=== PATIENT | female | born 1945 | race Caucasian/White ===

== ENCOUNTER 2018-01-17 22:08 | Inpatient (IN) | payer OTHER ==
[2018-01-17 23:14] LABS: Urine Blood NEGATIVE (NEG); Urine Glucose NEGATIVE (NEG); Urine Protein NEGATIVE (NEG); Urine Specific Gravity 1.025 (1.005-1.030); Urine pH 5.5 (5.0-7.0)
[2018-01-17] MEDS ORDERED: ONDANSETRON 4 MG/2 ML VIAL ONE (23:33)
[2018-01-17] MEDS ORDERED: MORPHINE 4 MG/ML SYR ONE (23:33)
[2018-01-17 23:36] LABS: Albumin 3.4 g/dL (3.4-5.0); Bilirubin Direct 0.1 mg/dL (0-0.2); Bilirubin Total 0.6 mg/dL (0.2-1.0); Potassium 3.5 mmol/L (3.5-5.1)
[2018-01-17 23:44] LABS: Urine Bacteria <20 /HPF (<20); Urine Culture Reflex Order NOT NEEDED; Urine RBC NONE SEEN /HPF (NONE SEEN)
[2018-01-17 23:45] LABS: Absolute Lymphocytes (CBC) 1.9 K/uL (0.7-4.9); Absolute Monocytes 1.6 K/uL (0.1-1.3); Absolute Neutrophil 8.9 K/uL (1.8-8.0); Basophils % 0.4 % (0-1.3); Eosinophils % 1.7 % (0-4.4); Hematocrit 40.4 % (36.0-45.0); Lymphocytes % 14.8 % (15.3-44.8); MCH 31.3 pg (27.0-35.0); MCV 91.1 fL (80-100); MPV 9.4 fL (7.6-11.3); Monocytes % 12.8 % (3.3-12.3); RBC Red Blood Cell Count 4.44 M/uL (3.86-4.86)
--- NOTE | 2018-01-18 01:56 | ER ---
Nurse's Notes [facility] Name: Barbara Deluca Age: 72 yrs Sex: Female : 1945 Arrival Date: 01/17/2018 Time: 22:11 Bed 23 Private MD: Diagnosis: Diverticulitis of large intestine without perforation or abscess without bleeding Presentation: 01/17 22:19 Presenting complaint: Patient states: that yesterday she started to have pain in her rectum area and then today the pain has gotten worse. Also now has pain to lower abd and lower back. Hx of kidney stones. Transition of care: patient was not received from another setting of care. Onset of symptoms was January 16, 2018. Risk Assessment: Do you want to hurt yourself or someone else? Patient reports no desire to harm self or others. Initial Sepsis Screen: Does the patient meet any 2 criteria? HR > 90 bpm. Yes Does the patient have a suspected source of infection? No. Patient's initial sepsis screen is negative. Care prior to arrival: Medication(s) given: Aleve last dose yesterday. 22:19 Method Of Arrival: Ambulatory 22:19 Acuity: ROSSY 3 fc Historical: - Allergies: 22:23 Codeine; fc - Home Meds: 22:23 metformin 500 mg Oral tab 1 tab 2 times per day [Active]; omeprazole 40 mg Oral cpDR 1 fc cap once daily [Active]; - PMHx: 22:23 Diabetes - NIDDM; GERD; fc - PSHx: 22:23 Cholecystectomy; Hysterectomy; ; Carpal Tunnel Repair; Heel spurs; fc - Immunization history:: Last tetanus immunization: unknown. - Social history:: Smoking status: Patient/guardian denies using tobacco. - Ebola Screening: : Patient negative for fever greater than or equal to 101.5 degrees Fahrenheit, and additional compatible Ebola Virus Disease symptoms Patient denies exposure to infectious person Patient denies travel to an Ebola-affected area in the 21 days before illness onset. Screenin:24 Abuse screen: Denies threats or abuse. Nutritional screening: No deficits noted. Tuberculosis screening: No symptoms or risk factors identified. Fall Risk None identified. Assessment: 22:30 General: Appears in no apparent distress. uncomfortable, well groomed, well developed, kr2 well nourished, Behavior is calm, cooperative, appropriate for age. Pain: Complains of pain in right lower quadrant, lower back Pain radiates to rectum and vagina Pain currently is 6 out of 10 on a pain scale. Quality of pain is described as sharp, shooting, Is continuous, Alleviated by nothing. Neuro: Level of Consciousness is awake, alert, obeys commands, Oriented to person, place, time, situation. Cardiovascular: Capillary refill < 3 seconds in bilateral fingers Patient's skin is warm and dry. Respiratory: Airway is patent Respiratory effort is even, unlabored, Respiratory pattern is regular, symmetrical. GI: Abdomen is round non-distended, Bowel sounds present X 4 quads. Abd is soft X 4 quads Abdomen is tender to palpation in umbilical area, right lower quadrant and left lower quadrant Reports nausea. : Urine is clear. EENT: Oral mucosa is moist. Derm: Skin is intact, with poor turgor Skin is pink, warm \T\ dry. Musculoskeletal: Circulation, motion, and sensation intact. 23:30 Reassessment: Patient appears in no apparent distress at this time. Patient and/or kr2 family updated on plan of care and expected duration. Pain level reassessed. Patient is alert, oriented x 3, equal unlabored respirations, skin warm/dry/pink. 01/18 00:34 Reassessment: Patient appears in no apparent distress at this time. Patient and/or kr2 family updated on plan of care and expected duration. Pain level reassessed. Patient is alert, oriented x 3, equal unlabored respirations, skin warm/dry/pink. Pain decreased with morphine. 00:42 Reassessment: Patient appears in no apparent distress at this time. Patient and/or rv family updated on plan of care and expected duration. Pain level reassessed. Patient is alert, oriented x 3, equal unlabored respirations, skin warm/dry/pink. AWAITING SCAN RESULT. Vital Signs: 01/17 22:23 BP 149 / 83; Pulse 109; Resp 20; Temp 98.6(O); Pulse Ox 98% on R/A; Weight 77.11 kg fc (R); Height 5 ft. 3 in. (160.02 cm) (R); Pain 10/10; 01/18 00:34 BP 137 / 75; Pulse 99; Resp 17; Pulse Ox 96% on R/A; kr2 00:42 BP 137 / 75; Pulse 102; Pulse Ox 91% on R/A; rv 02:45 BP 120 / 69; Pulse 102; Pulse Ox 93% on R/A; rv 01/17 22:23 Body Mass Index 30.11 (77.11 kg, 160.02 cm) ED Course: 01/17 22:11 Patient arrived in ED. al2 22:21 Triage completed. fc 22:23 Arm band placed on Patient placed in an exam room, on a stretcher. fc 22:24 Patient has correct armband on for positive identification. Placed in gown. Bed in low fc position. Call light in reach. 22:28 Romulo Figueroa PA is PHCP. jm 22:28 Benny Grady MD is Attending Physician. [facility] 22:28 Tanya Hansen, NAOMY is Primary Nurse. kr2 22:55 Oral contrast given. 23:00 Initial lab(s) drawn, by me, sent to lab. Missed attempt(s): 22 gauge in left forearm. kr2 Bleeding controlled, band aid applied, catheter tip intact. 01/18 00:23 CT Abd/Pelvis - W/Contrast In Process Unspecified. EDMS 00:56 CT completed. Patient tolerated procedure well. Patient moved to CT via stretcher. Patient moved back from CT. 01:55 Jeana Bahena MD is Hospitalizing Provider. [facility] 02:44 No provider procedures requiring assistance completed. Patient admitted, IV remains in rv place. intact. Administered Medications: 01/17 23:22 Drug: Zofran 4 mg Route: IVP; Site: right antecubital; kr2 01/18 02:43 Follow up: Response: No adverse reaction rv 01/17 23:35 Drug: morphine 2 mg Route: IVP; Site: right antecubital; kr2 01/18 02:43 Follow up: Response: No adverse reaction rv Outcome: 01:56 Decision to Hospitalize by Provider. jmm 02:44 Admitted to Med/surg accompanied by nurse, via wheelchair, room 201, with chart, Report rv called to BHAVIK 02:44 Condition: stable 02:45 Patient left the ED. rv Signatures: Dispatcher [employer] EDMS Romulo Figueroa PA PA jmm Hagler, Ervin Beryl Orellana RN RN Michell Kauffman Karey, RN RN kr2 Roseanna, Sarah figueroa2 Mat Buck, RN RN rv
--- NOTE | 2018-01-18 01:56 | EDPHYS ---
Physician Documentation [facility] Name: Barbara Deluca Age: 72 yrs Sex: Female : 1945 Arrival Date: 01/17/2018 Time: 22:11 Bed 23 Private MD: ED Physician Benny Grady HPI: 01/17 22:53 This 72 yrs old Female presents to ER via Ambulatory with complaints of Low jmm Back Pain, Abdominal Pain. 22:53 The patient presents with abdominal pain in the lower abdomen. Onset: The jmm symptoms/episode began/occurred gradually, 1 day(s) ago. The symptoms radiate to rectum. Associated signs and symptoms: Pertinent positives: chills. The symptoms are described as achy. This is a 72 year old female with a history of DM, GERD that presents to the ED with lower abdominal pain, low back pain radiating to the rectum. Patient denies vomiting or diarrhea. Patient also complains of chills. . Historical: - Allergies: 22:23 Codeine; fc - Home Meds: 22:23 metformin 500 mg Oral tab 1 tab 2 times per day [Active]; omeprazole 40 mg Oral cpDR 1 fc cap once daily [Active]; - PMHx: 22:23 Diabetes - NIDDM; GERD; fc - PSHx: 22:23 Cholecystectomy; Hysterectomy; ; Carpal Tunnel Repair; Heel spurs; fc - Immunization history:: Last tetanus immunization: unknown. - Social history:: Smoking status: Patient/guardian denies using tobacco. - Ebola Screening: : Patient negative for fever greater than or equal to 101.5 degrees Fahrenheit, and additional compatible Ebola Virus Disease symptoms Patient denies exposure to infectious person Patient denies travel to an Ebola-affected area in the 21 days before illness onset. ROS: 22:53 Cardiovascular: Negative for chest pain, palpitations, and edema, Respiratory: Negative jmm for shortness of breath, cough, wheezing, and pleuritic chest pain. 22:53 Constitutional: Positive for chills. 22:53 Abdomen/GI: Positive for abdominal pain. 22:53 Back: Positive for pain at rest, radiated pain. 22:53 All other systems are negative. Exam: 22:53 Head/Face: atraumatic. Chest/axilla: Normal chest wall appearance and motion. jmm Cardiovascular: Regular rate and rhythm. No edema appreciated Respiratory: Normal respirations, no respiratory distress appreciated 22:53 Constitutional: The patient appears in no acute distress, alert, awake. 22:53 Abdomen/GI: Inspection: abdomen appears normal, Bowel sounds: normal, Palpation: soft, mild abdominal tenderness, in the right lower quadrant and left lower quadrant. 22:53 Back: ROM is normal. 22:53 Skin: Appearance: Color: normal in color. 22:53 Neuro: Orientation: is normal, Mentation: is normal, Memory: is normal. 22:53 Psych: Behavior/mood is pleasant, cooperative. Vital Signs: 22:23 BP 149 / 83; Pulse 109; Resp 20; Temp 98.6(O); Pulse Ox 98% on R/A; Weight 77.11 kg fc (R); Height 5 ft. 3 in. (160.02 cm) (R); Pain 10/10; 01/18 00:34 BP 137 / 75; Pulse 99; Resp 17; Pulse Ox 96% on R/A; kr2 00:42 BP 137 / 75; Pulse 102; Pulse Ox 91% on R/A; rv 02:45 BP 120 / 69; Pulse 102; Pulse Ox 93% on R/A; rv 01/17 22:23 Body Mass Index 30.11 (77.11 kg, 160.02 cm) fc MDM: 01/17 22:34 Patient medically screened. [facility] 22:55 Data reviewed: vital signs, nurses notes. Counseling: I had a detailed discussion with [facility] the patient and/or guardian regarding:. 01/18 01:55 ED course: I discussed the patient with Dr. Bhaena whom will see the patient in the [facility] ED. Accepted admission. . 01/17 22:52 Order name: Amylase, Serum; Complete Time: 23:46 [facility] 01/17 22:52 Order name: Basic Metabolic Panel; Complete Time: 23:46 [facility] 01/17 22:52 Order name: CBC with Diff; Complete Time: 23:47 [facility] 01/17 22:52 Order name: Creatinine for Radiology; Complete Time: 00:04 [facility] 01/17 22:52 Order name: Hepatic Function; Complete Time: 23:46 [facility] 01/17 22:52 Order name: Lipase; Complete Time: 23:46 [facility] 01/17 22:52 Order name: Urine Microscopic Only; Complete Time: 23:46 [facility] 01/17 22:52 Order name: IV Saline Lock; Complete Time: 23:06 [facility] 01/17 22:52 Order name: CT Abd/Pelvis - W/Contrast [facility] 01/17 23:09 Order name: Urine Dipstick--Ancillary (enter results); Complete Time: 23:46 [facility] 01/17 22:52 Order name: Labs collected and sent; Complete Time: 23:06 [facility] 01/17 22:52 Order name: Urine Dipstick-Ancillary (obtain specimen); Complete Time: 23:06 [facility] Administered Medications: 01/17 23:22 Drug: Zofran 4 mg Route: IVP; Site: right antecubital; [facility] 01/18 02:43 Follow up: Response: No adverse reaction rv 01/17 23:35 Drug: morphine 2 mg Route: IVP; Site: right antecubital; 2 01/18 02:43 Follow up: Response: No adverse reaction rv Disposition: 06:38 Co-signature as Attending Physician, Benny Grady MD I agree with the assessment and nghia plan of care. Disposition: 01/18/18 01:56 Hospitalization ordered by Jeana Bahena for Observation. Preliminary diagnosis is Diverticulitis of large intestine without perforation or abscess without bleeding. - Bed requested for Telemetry/MedSurg (observation). - Status is Observation. rv - Condition is Stable. - Problem is new. - Symptoms are unchanged. UTI on Admission? No Signatures: Dispatcher [employer] EDVT Rajan Orta rg2 Benny Grady MD MD cha Mickail, Joel, PA PA [facility] Beryl Orellana RN NAOMY Tanya Hansen RN RN kr2 Mat Buck, NAOMY RN rv Corrections: (The following items were deleted from the chart) 02:39 01:56 Hospitalization Ordered by Jeana Bahena MD for Observation. Preliminary rg2 diagnosis is Diverticulitis of large intestine without perforation or abscess without bleeding. Bed requested for Telemetry/MedSurg (observation). Status is Observation. Condition is Stable. Problem is new. Symptoms are unchanged. UTI on Admission? No. [facility] 02:45 02:39 01/18/2018 01:56 Hospitalization Ordered by Jeana Bahena MD for Observation. rv Preliminary diagnosis is Diverticulitis of large intestine without perforation or abscess without bleeding. Bed requested for Telemetry/MedSurg (observation). Status is Observation. Condition is Stable. Problem is new. Symptoms are unchanged. UTI on Admission? No. rg2
[2018-01-18] MEDS ORDERED: CIPROFLOXACIN 400mg IV 400 MG/200 ML BAG IV ONE (02:00)
[2018-01-18] MEDS ORDERED: METRONIDAZOLE 500mg IVPB 500 MG/100 ML BAG IV ONE (02:00)
--- NOTE | 2018-01-18 02:44 | P.HP ---
Certification for Inpatient Patient admitted to: Inpatient With expected LOS: >2 Midnights Practitioner: I am a practitioner with admitting privileges, knowledge of patient current condition, hospital course, and medical plan of care. Services: Services provided to patient in accordance with Admission requirements found in Title 42 Section 412.3 of the Code of Federal Regulations Patient History Date of Service: 01/18/18 Reason for admission: diverticulitis History of Present Illness: Ms Deluca is a 72 years old woman with history of DM II, GERD who start yesterday with severe lower abdominal pain, radiated to rectum area. The pain was constant, 10/10 of intensity, associated with nausea and chills. She denied fever, vomiting or diarrhea. She has never had this kind of pain before. Lab work remarkable for leukocytosis 12.6K, no fever in ER, CT abd/pelvis remarkable for sigmoid diverticulitis without complications. Allergies Penicillins Adverse Reaction (Mild, Verified 01/18/18 02:35) Hives/Rash codeine Adverse Reaction (Verified 01/18/18 02:35) Hives/Rash - Past Medical/Surgical History -: diabetes mellitus -: GERD -: cholecystectomy -: hysterectomy -: - Family History Family History: Reviewed- Non-Contributory - Social History Smoking Status: Never smoker Alcohol use: No CD- Drugs: No Place of Residence: Home Review of Systems 10-point ROS is otherwise unremarkable Physical Examination - Physical Exam General: Alert, In no apparent distress HEENT: Atraumatic, PERRLA, Mucous membr. moist/pink, EOMI, Sclerae nonicteric Neck: Supple, 2+ carotid pulse no bruit, No LAD, Without JVD or thyroid abnormality Respiratory: Clear to auscultation bilaterally, Normal air movement Cardiovascular: Regular rate/rhythm, Normal S1 S2 Gastrointestinal: Normal bowel sounds, Tenderness (lower abdomen.) Musculoskeletal: No tenderness Integumentary: No rashes Neurological: Normal speech, Normal strength at 5/5 x4 extr, Normal tone, Normal affect Lymphatics: No axilla or inguinal lymphadenopathy - Studies Laboratory Data (last 24 hrs) 01/17/18 23:36: WBC 12.6 H, Hgb 13.9, Hct 40.4, Plt Count 135 L 01/17/18 23:00: Creatinine 0.70 01/17/18 23:00: Sodium 144, Potassium 3.5, BUN 19 H, Creatinine 0.70, Glucose 141 H, Total Bilirubin 0.6, AST 17, ALT 29, Alkaline Phosphatase 48, Amylase 42 , Lipase 79 Assessment and Plan - Problems (Diagnosis) (1) Acute diverticulitis Current Visit: Yes Status: Acute (2) Diabetes mellitus Current Visit: Yes Status: Acute Qualifiers: Diabetes mellitus type: type 2 Diabetes mellitus terminal press operator insulin use: without terminal press operator use Diabetes mellitus complication status: with unspecified complications Qualified Code(s): E11.8 - Type 2 diabetes mellitus with unspecified complications (3) GERD (gastroesophageal reflux disease) Current Visit: Yes Status: Acute Qualifiers: Esophagitis presence: esophagitis presence not specified Qualified Code(s) : K21.9 - Gastro-esophageal reflux disease without esophagitis - Plan The patient will be admitted to the hospital due to acute non-complicated sigmoid diverticulitis. Will order empiric treatment with Ciprofloxacin and Flagyl. Will keep her NPO since is still symptomatic for nausea. Will check HgbA1c, order SSI for glycemic control. - Advance Directives Does patient have a Living Will: Yes Does patient have a Durable POA for Healthcare: Yes - Code Status/Comfort Care Code Status Assessed: Yes Code Status: Full Code
[2018-01-18] MEDS ORDERED: GLUCAGON 1 MG/VIAL IM PRN (02:48)
[2018-01-18] MEDS ORDERED: ONDANSETRON 4 MG/2 ML VIAL IV PRN (02:48)
[2018-01-18] MEDS ORDERED: KETOROLAC 30 MG/ML INJ IV PRN (02:48)
[2018-01-18] MEDS ORDERED: D50W 25 GM/50 ML SYRINGE IV PRN (02:48)
[2018-01-18 03:06] VITALS: BMI 30.2
[2018-01-18] MEDS: NA CHLORIDE 0.9% 1,000 ML IV SCH ×2 (03:28→16:25)
[2018-01-18] MEDS: ACETAMINOPHEN 500 MG TAB PO PRN ×4 (04:09→21:33)
[2018-01-18] MEDS: PANTOPRAZOLE 40MG TABLET PO SCH (05:44)
[2018-01-18 05:48] LABS: BUN Blood Urea Nitrogen 15 mg/dL (7-18); Bicarbonate 28 mmol/L (21-32); Glucose Level 140 mg/dL (74-106); Magnesium 2.3 mg/dL (1.8-2.4); Potassium 3.9 mmol/L (3.5-5.1); Sodium Level 141 mmol/L (136-145)
[2018-01-18] MEDS ORDERED: INSULIN -REGULAR HUMAN 50 UNIT/0.5 ML ML SQ SCH (06:00)
--- NOTE | 2018-01-18 07:00 | RAD REPORT ---
EXAM DESCRIPTION: CT - Abdomen Pelvis W Contrast - 01/18/2018 4:40 am CLINICAL HISTORY: Abdominal pain, history of kidney stones, history of cholecystectomy and hysterect analisa. A preliminary written report was provided at the time of the study, and the report was reviewed prio r to final dictation. COMPARISON: None. TECHNIQUE: Biphasic, helical CT imaging of the abdomen and pelvis was performed following 100 ml non -ionic IV contrast. Oral contrast was given. Delayed images also obtained. All CT scans are performed using dose optimization technique as appropriate and may include automated exposure control or mA/KV adjustment according to patient size. FINDINGS: No suspicious findings in the lung bases. Liver shows borderline to mild fatty infiltration. Liver cysts are present. Largest is 3.8 cm. No veronica picious liver parenchymal lesion. Spleen and pancreas show no suspicious findings. Cholecystectomy cl ips are present. Biliary tree size is not outside of normal range. Symmetric renal function is seen with no hydronephrosis or suspicious renal mass. No pyelonephritis o r acute renal parenchymal process seen. A 3.6 centimeter cyst is present upper pole left kidney with a 6.8 cm cyst lower pole left kidney. Punctate nonobstructing calculus noted in a calyx on the right. No perinephric stranding. No adrenal gland abnormality. Urinary bladder is normal. No gastric dilatation or gastric wall thickening. No acute small bowel finding. Moderate stool volume is present filling most of the colon. No evidence for appendicitis. Appendix is not well defined. Sigmoid colon is tortuous and redundant. Mild to moderate diverticulosis is present. An approximately 6-8 centimeter long segment of sigmoid colon in the low pelvis shows wall thickening with edema and stranding in the adjacent fat. A few small adjacent lymph nodes are present. There is a small amount of fluid pooled in the dependent portion of the pelvis. No extraluminal free air. No hernia, mass or bulky lymphadenopathy. Postsurgical changes are noted to the anterior abdominal wa ll. No adrenal abnormality. No suspicious bony findings. IMPRESSION: Acute sigmoid diverticulitis. No abscess, perforation or other surgically complicating f actor. Borderline or mild fatty infiltration of the liver. Liver and renal cysts.
[2018-01-18] MEDS ORDERED: HYDROCODONE/APAP 7.5/325 MG TAB PO PRN (07:27)
[2018-01-18] MEDS ORDERED: TRAMADOL HCL 50 MG TAB PO PRN (07:27)
[2018-01-18] MEDS ORDERED: POTASSIUM 25 MEQ EFFERV TAB PO ONE (07:40)
[2018-01-18] MEDS: INSULIN -REGULAR HUMAN 50 UNIT/0.5 ML ML SQ SCH ×4 (08:07→20:22)
[2018-01-18 08:21] LABS: Absolute Neutrophil 6.2 K/uL (1.8-8.0); Basophils % 0.6 % (0-1.3); Eosinophils % 2.2 % (0-4.4); Hematocrit 39.6 % (36.0-45.0); Lymphocytes % 20.8 % (15.3-44.8); MCH 32.1 pg (27.0-35.0); MCV 90.3 fL (80-100); MPV 9.9 fL (7.6-11.3); Monocytes % 10.5 % (3.3-12.3); RBC Red Blood Cell Count 4.38 M/uL (3.86-4.86)
[2018-01-18] MEDS: METRONIDAZOLE 500mg IVPB 500 MG/100 ML BAG IV SCH ×2 (08:51→16:27)
[2018-01-18] MEDS: ENOXAPARIN 40 MG/0.4 ML SQ SCH (08:52)
--- NOTE | 2018-01-18 10:01 | P.PN ---
Subjective Date of Service: 01/18/18 Primary Care Provider: Tristan Parker NP Chief Complaint: diverticulitis Subjective: Improving (Patient feels slightly better. Pain to the lower quadrant improved. No nausea or vomiting noted this morning.) Physical Examination - Vital Signs Temperature: 97.4 F Blood Pressure: 119/66 Pulse: 72 Respirations: 16 Pulse Ox (%): 95 - Physical Exam General: Alert, In no apparent distress, Oriented x3, Cooperative HEENT: Atraumatic Neck: Supple Respiratory: Clear to auscultation bilaterally, Normal air movement Cardiovascular: Normal pulses, Regular rate/rhythm Gastrointestinal: Normal bowel sounds, Soft and benign, Non-distended, No masses , No rebound, No guarding, Tenderness (Minimal pain to the lower quadrant) Musculoskeletal: No erythema, No tenderness, No warmth Integumentary: No tenderness/swelling, No erythema, No warmth, No cyanosis Neurological: Normal speech, Normal strength at 5/5 x4 extr, Normal tone, Normal affect - Studies Laboratory Data (last 24 hrs) 01/18/18 05:00: Sodium 141, Potassium 3.9, BUN 15, Creatinine 0.60, Glucose 140 H, Magnesium 2.3 01/17/18 23:36: WBC 12.6 H, Hgb 13.9, Hct 40.4, Plt Count 135 L 01/17/18 23:00: Creatinine 0.70 01/17/18 23:00: Sodium 144, Potassium 3.5, BUN 19 H, Creatinine 0.70, Glucose 141 H, Total Bilirubin 0.6, AST 17, ALT 29, Alkaline Phosphatase 48, Amylase 42 , Lipase 79 Medications List Reviewed: Yes Assessment & Plan - Problems (Diagnosis) (1) Obesity Current Visit: Yes Status: Chronic Plan: Will address lifestyle modification education. Qualifiers: Obesity type: due to excess calories Obesity classification: adult class 1 (BMI 30 - 34.9) Serious obesity comorbidity presence: with serious comorbidity Body mass index: BMI 30.0-30.9 Qualified Code(s): E66.09 - Other obesity due to excess calories; Z68.30 - Body mass index (BMI) 30.0-30.9, adult (2) Acute diverticulitis Onset Date: 01/18/18 Current Visit: Yes Status: Acute Plan: Patient with sigmoid diverticulitis. Patient improving. Will start clear liquid diet today and advance as tolerated to a soft diet. Patient with history of diverticulosis. Last colonoscopy recently by GI-Dr. Pablo showed diverticulosis. Encourage ambulation. Will provide medication for pain. Anticipate discharge in the next 1-2 days. Patient will need colonoscopy in 4- 6 weeks and follow up with GI as an outpatient. (3) Diabetes mellitus Onset Date: 01/18/18 Current Visit: Yes Status: Chronic Plan: Will check A1c. Will continue Accu-Cheks and sliding scale. Hold metformin at this time. Qualifiers: Diabetes mellitus type: type 2 Diabetes mellitus superintendent container terminal insulin use: without superintendent container terminal use Diabetes mellitus complication status: with unspecified complications Qualified Code(s): E11.8 - Type 2 diabetes mellitus with unspecified complications (4) GERD (gastroesophageal reflux disease) Onset Date: 01/18/18 Current Visit: Yes Status: Chronic Plan: Will provide PPI. Qualifiers: Esophagitis presence: esophagitis presence not specified Qualified Code(s) : K21.9 - Gastro-esophageal reflux disease without esophagitis Discharge Plan: Home Plan to discharge in: 24 Hours (to 48 hours) Time Spent Managing Pts Care (In Minutes): 55
[2018-01-18] MEDS: CIPROFLOXACIN 400mg IV 400 MG/200 ML BAG IV SCH (13:09)
[2018-01-19] MEDS: METRONIDAZOLE 500mg IVPB 500 MG/100 ML BAG IV SCH ×2 (00:06→10:03)
[2018-01-19] MEDS: NA CHLORIDE 0.9% 1,000 ML IV SCH ×2 (00:06→09:00)
[2018-01-19] MEDS: CIPROFLOXACIN 400mg IV 400 MG/200 ML BAG IV SCH (01:31)
[2018-01-19 04:55] LABS: Absolute Lymphocytes (CBC) 1.5 K/uL (0.7-4.9); Absolute Monocytes 0.5 K/uL (0.1-1.3); Absolute Neutrophil 2.8 K/uL (1.8-8.0); Basophils % 0.6 % (0-1.3); Eosinophils % 4.8 % (0-4.4); Hematocrit 39.6 % (36.0-45.0); Lymphocytes % 29.7 % (15.3-44.8); MCH 32.2 pg (27.0-35.0); MCV 90.6 fL (80-100); MPV 9.8 fL (7.6-11.3); RBC Red Blood Cell Count 4.37 M/uL (3.86-4.86)
[2018-01-19 05:15] LABS: Magnesium 2.6 mg/dL (1.8-2.4); Potassium 4.3 mmol/L (3.5-5.1)
[2018-01-19] MEDS: PANTOPRAZOLE 40MG TABLET PO SCH (05:30)
[2018-01-19] MEDS: INSULIN -REGULAR HUMAN 50 UNIT/0.5 ML ML SQ SCH ×2 (07:30→11:30)
--- NOTE | 2018-01-19 08:39 | P.DS ---
Admission Date: 01/18/18 Discharge Date: 01/19/18 Primary Care Provider: Tristan Parker NP Disposition: ROUTINE DISCHARGE Discharge Condition: GOOD Reason for Admission: diverticulitis Procedures: CT Scan: FINDINGS: No suspicious findings in the lung bases. Liver shows borderline to mild fatty infiltration. Liver cysts are present. Largest is 3.8 cm. No suspicious liver parenchymal lesion. Spleen and pancreas show no suspicious findings. Cholecystectomy clips are present. Biliary tree size is not outside of normal range. Symmetric renal function is seen with no hydronephrosis or suspicious renal mass. No pyelonephritis or acute renal parenchymal process seen. A 3.6 centimeter cyst is present upper pole left kidney with a 6.8 cm cyst lower pole left kidney. Punctate nonobstructing calculus noted in a calyx on the right. No perinephric stranding. No adrenal gland abnormality. Urinary bladder is normal. No gastric dilatation or gastric wall thickening. No acute small bowel finding. Moderate stool volume is present filling most of the colon. No evidence for appendicitis. Appendix is not well defined. Sigmoid colon is tortuous and redundant. Mild to moderate diverticulosis is present. An approximately 6-8 centimeter long segment of sigmoid colon in the low pelvis shows wall thickening with edema and stranding in the adjacent fat. A few small adjacent lymph nodes are present. There is a small amount of fluid pooled in the dependent portion of the pelvis. No extraluminal free air. No hernia, mass or bulky lymphadenopathy. Postsurgical changes are noted to the anterior abdominal wall. No adrenal abnormality. No suspicious bony findings. IMPRESSION: Acute sigmoid diverticulitis. No abscess, perforation or other surgically complicating factor. Borderline or mild fatty infiltration of the liver. Liver and renal cysts. - Problems (1) Obesity Current Visit: Yes Status: Chronic Qualifiers: Obesity type: due to excess calories Obesity classification: adult class 1 (BMI 30 - 34.9) Serious obesity comorbidity presence: with serious comorbidity Body mass index: BMI 30.0-30.9 Qualified Code(s): E66.09 - Other obesity due to excess calories; Z68.30 - Body mass index (BMI) 30.0-30.9, adult (2) Acute diverticulitis Onset Date: 01/18/18 Current Visit: Yes Status: Acute (3) Diabetes mellitus Onset Date: 01/18/18 Current Visit: Yes Status: Chronic Qualifiers: Diabetes mellitus type: type 2 Diabetes mellitus intermediate insulin use: without intermediate use Diabetes mellitus complication status: with unspecified complications Qualified Code(s): E11.8 - Type 2 diabetes mellitus with unspecified complications (4) GERD (gastroesophageal reflux disease) Onset Date: 01/18/18 Current Visit: Yes Status: Chronic Qualifiers: Esophagitis presence: esophagitis presence not specified Qualified Code(s) : K21.9 - Gastro-esophageal reflux disease without esophagitis Brief History of Present Illness: 72-year-old female presented to emergency room with abdominal pain noted to the lower quadrant. Patient was evaluated in the emergency room. Found to have sigmoid diverticulitis. Patient was admitted for treatment. Hospital Course: During the course of her stay patient was treated for acute sigmoid diverticulitis. Patient with history of diverticulosis. Patient has done well during the course of her stay. No significant abdominal pain, nausea, and vomiting noted at discharge. She has been able to tolerate her diet. She is passing bowel movement. At discharge she will continue with Cipro 500 mg twice daily and Flagyl 500 mg 1 pill 3 times a day for 10 days. A limited supply of tramadol 50 mg 1 pill 3 times a day as needed for pain will be provided. She will continue with a soft diet. Patient will be provided information on diverticulitis. Recommendation is for the patient follow up with GI in 2-4 weeks. Patient may require repeat colonoscopy in 4-6 weeks to further address. Patient has diabetes. She will continue with her medication-Glucophage 500 mg daily. Recommendation is to maintain blood sugars less 140 fasting and less than 200 after meals. Further adjustment can be done by her PCP. Patient has GERD. She will continue with her medication-Prilosec 1 pill daily. Vital Signs/Physical Exam: Temp Pulse Resp BP Pulse Ox 97.8 F 74 18 124/60 96 01/19/18 04:00 01/19/18 04:00 01/19/18 04:00 01/19/18 04:00 01/19/18 04:00 General: Alert, In no apparent distress, Oriented x3, Cooperative HEENT: Atraumatic Neck: Supple Respiratory: Clear to auscultation bilaterally, Normal air movement Cardiovascular: Normal pulses, Regular rate/rhythm Gastrointestinal: Normal bowel sounds, Soft and benign, Non-distended, No ascites, No tenderness, No masses, No rebound, No guarding Musculoskeletal: No erythema, No tenderness, No warmth Integumentary: No tenderness/swelling, No erythema, No warmth, No cyanosis Neurological: Normal speech, Normal strength at 5/5 x4 extr, Normal tone, Normal affect Lymphatics: No axilla or inguinal lymphadenopathy Laboratory Data at Discharge: WBC 5.0 K/uL (4.3-10.9) D 01/19/18 04:40 Hgb 14.1 g/dL (12.0-15.0) 01/19/18 04:40 Hct 39.6 % (36.0-45.0) 01/19/18 04:40 Plt Count 143 K/uL (152-406) L 01/19/18 04:40 Sodium 143 mmol/L (136-145) 01/19/18 04:40 Potassium 4.3 mmol/L (3.5-5.1) 01/19/18 04:40 BUN 11 mg/dL (7-18) 01/19/18 04:40 Creatinine 0.70 mg/dL (0.55-1.3) 01/19/18 04:40 Glucose 129 mg/dL (74-106) H 01/19/18 04:40 Magnesium 2.6 mg/dL (1.8-2.4) H 01/19/18 04:40 Total Bilirubin 0.6 mg/dL (0.2-1.0) 01/17/18 23:00 AST 17 U/L (15-37) 01/17/18 23:00 ALT 29 U/L (12-78) 01/17/18 23:00 Alkaline Phosphatase 48 U/L (45-117) 01/17/18 23:00 Amylase 42 U/L (25-115) 01/17/18 23:00 Lipase 79 U/L (73-393) 01/17/18 23:00 Home Medications: Metformin ER [Glucophage ER*] 500 mg PO DAILY 01/18/18 Omeprazole [Prilosec] 40 mg PO DAILY 01/18/18 Ciprofloxacin HCl [Cipro 500 MG Tablet] 500 mg PO BID #20 tab 01/19/18 metroNIDAZOLE [Flagyl] 500 mg PO Q8H #30 tablet 01/19/18 traMADol HCL [Ultram*] 50 mg PO TID PRN #10 tab 01/19/18 New Medications: Ciprofloxacin HCl [Cipro 500 MG Tablet] 500 mg PO BID #20 tab metroNIDAZOLE [Flagyl] 500 mg PO Q8H #30 tablet traMADol HCL [Ultram*] 50 mg PO TID PRN #10 tab PRN Reason: Pain Mild Patient Discharge Instructions: 1. Patient will need to follow up with a PCP in 1 week to follow up this hospitalization. 2. Patient found to have acute sigmoid diverticulitis. Patient with history of diverticulosis. Patient has done well during the course of her stay. At discharge she will continue with Cipro 500 mg twice daily and Flagyl 500 mg 1 pill 3 times a day for 10 days. A limited supply of pain medication-tramadol will be provided to be used 1 pill 3 times a day as needed She will continue with a soft diverticular diet. Patient will be provided information on diverticulitis. Recommendation is for the patient follow up with GI in 2-4 weeks. Patient may require repeat colonoscopy in 4-6 weeks to further address. 3. Patient has diabetes. She will continue with her medication-Glucophage 500 mg daily. Recommendation is to maintain blood sugars less 140 fasting and less than 200 after meals. Further adjustment can be done by her PCP. 4. Patient has GERD. She will continue with her medication-Prilosec 1 pill daily. Diet: Soft diverticular diet Activity: Ad clark Time spent managing pt's care (in minutes): 55
[2018-01-19] MEDS: ENOXAPARIN 40 MG/0.4 ML SQ SCH (10:04)
[2018-01-19 12:59] VITALS: BP 148/67; TEMP 96.9
[2018-01-19 14:30] VITALS: O2SAT 98
== END 2018-01-19 13:35 | disposition home or self-care (01) | DRG 392 ==
LOC: ER 22:08 → ERHOLD 01-18 01:58 → 2ND 01-18 02:40 → OBSVTOIN 01-18 07:15
PROVIDERS: ADMIT Internal Medicine; ATTEND Family Medicine
DX: K57.32 Diverticulitis of large intestine without perforation or abscess without bleeding (principal); E11.8 Type 2 diabetes mellitus with unspecified complications; K21.9 Gastro-esophageal reflux disease without esophagitis; E66.09 Other obesity due to excess calories; Z68.30 Body mass index [BMI] 30.0-30.9, adult; Z88.5 Allergy status to narcotic agent; Z88.0 Allergy status to penicillin; Z79.84 Long term (current) use of oral hypoglycemic drugs
CPT/HCPCS: 36415; 74177; 80048; 80076; 81003; 81015; 82150; 82962; 83690; 83735; 84145; 85025; 96374; 96375; 99285; G0378; J0744; J1650; J2405; J7030; Q9967

== ENCOUNTER 2018-12-22 08:52 | Emergency (ER) | payer OTHER ==
[2018-12-22] MEDS ORDERED: DIPHENHYDRAMINE 25 MG TAB/CAP ONE (09:49)
[2018-12-22] MEDS ORDERED: ONDANSETRON 4 MG (ODT) TAB ONE (09:49)
[2018-12-22] MEDS ORDERED: dexAMETHasone 10 MG/ML VIAL ONE (09:49)
[2018-12-22] MEDS ORDERED: FAMOTIDINE 20 MG TAB ONE (09:50)
[2018-12-22] MEDS ORDERED: TETANUS & DIPHTHERIA TOX,ADULT 0.5 ML VIAL ONE (09:59)
--- NOTE | 2018-12-22 10:08 | ER ---
Nurse's Notes [facility] Name: Barbara Deluca Age: 73 yrs Sex: Female : 1945 Arrival Date: 12/22/2018 Time: 08:55 Bed 14 Private MD: Diagnosis: Insect bite (nonvenomous) of right hand Presentation: 12/22 09:54 Presenting complaint: Patient states: Patient states she got stung by a red wasp the ae4 previous. Patient reports vomiting green bile and diarrhea this morning. Transition of care: patient was not received from another setting of care. Onset: The symptoms/episode began/occurred gradually. Anaphylaxis evaluation, no signs or symptoms of anaphylaxis were noted. Onset of symptoms was December 21, 2018. Risk Assessment: Do you want to hurt yourself or someone else? Patient reports no desire to harm self or others. Initial Sepsis Screen: Does the patient meet any 2 criteria? No. Patient's initial sepsis screen is negative. Does the patient have a suspected source of infection? No. Patient's initial sepsis screen is negative. Care prior to arrival: None. 09:54 Acuity: ROSSY 3 ae4 09:54 Method Of Arrival: Ambulatory ae4 Triage Assessment: 09:58 General: Appears in no apparent distress. Behavior is calm, cooperative. ae4 Historical: - Allergies: 09:53 Codeine; ae4 - Home Meds: 09:53 metformin 500 mg Oral tab 1 tab 2 times per day [Active]; omeprazole 40 mg Oral cpDR 1 ae4 cap once daily [Active]; - PMHx: 09:53 Diabetes - NIDDM; GERD; ae4 - Immunization history:: Adult Immunizations up to date, Last tetanus immunization: > 10 years ago. - Social history:: Smoking status: Patient/guardian denies using tobacco. - Ebola Screening: : Patient denies travel to an Ebola-affected area in the 21 days before illness onset No symptoms or risks identified at this time. Screenin:58 Abuse screen: Denies threats or abuse. Nutritional screening: No deficits noted. ae4 Tuberculosis screening: No symptoms or risk factors identified. Fall Risk None identified. Assessment: 09:56 Pain: Complains of pain in dorsum of right hand. Neuro: Level of Consciousness is ae4 awake, alert, obeys commands, Oriented to person, place, time, situation, Appropriate for age. Cardiovascular: Denies chest pain, Heart tones S1 S2 present Patient's skin is warm and dry. Respiratory: Airway is patent Respiratory effort is even, unlabored, relaxed, Breath sounds are clear bilaterally. GI: Reports diarrhea, nausea, vomiting. : No signs and/or symptoms were reported regarding the genitourinary system. EENT: No signs and/or symptoms were reported regarding the EENT system. Derm: Skin is pink, warm \T\ dry. Musculoskeletal: Swelling present in dorsum of right hand. 10:15 Reassessment: Patient appears in no apparent distress at this time. Patient and/or iw family updated on plan of care and expected duration. Pain level reassessed. Patient is alert, oriented x 3, equal unlabored respirations, skin warm/dry/pink. Patient states feeling better. Patient states symptoms have improved. Vital Signs: 09:51 BP 125 / 65; Pulse 80; Resp 16; Temp 98.3(O); Pulse Ox 100% on R/A; ae4 ED Course: 08:55 Patient arrived in ED. as 08:57 Aubrey Robertson NP is PHCP. pm1 08:57 Chance Leon MD is Attending Physician. pm1 09:31 Mark Rich RN is Primary Nurse. ae4 09:56 Triage completed. ae4 09:58 Arm band placed on right wrist. ae4 09:58 Bed in low position. Call light in reach. Side rails up X 1. Pulse ox on. NIBP on. ae4 10:15 No provider procedures requiring assistance completed. Patient did not have IV access iw during this emergency room visit. Administered Medications: 09:00 Drug: Pepcid 20 mg Route: PO; ae4 10:16 Follow up: Response: No adverse reaction; Marked relief of symptoms iw 09:30 Drug: Benadryl 25 mg Route: PO; ae4 10:16 Follow up: Response: No adverse reaction; Marked relief of symptoms iw 09:37 Drug: Zofran 4 mg Route: PO; ae4 10:16 Follow up: Response: No adverse reaction iw 09:40 Drug: Decadron 10 mg {Note: Administered PO..} Route: IM; Site: Other; ae4 10:16 Follow up: Response: No adverse reaction; Marked relief of symptoms iw 09:49 Drug: Tetanus-Diphtheria Toxoid Adult 0.5 ml {Printer Assistant: [employer]. Exp: ae4 09/02/2020. Lot #: [id number]. } Route: IM; Site: left deltoid; 10:16 Follow up: Response: No adverse reaction iw Outcome: 10:07 Discharge ordered by . pm1 10:15 Discharged to home ambulatory. iw 10:15 Condition: good 10:15 Discharge instructions given to patient, Instructed on discharge instructions, follow up and referral plans. medication usage, Demonstrated understanding of instructions, follow-up care, medications, Prescriptions given X 4. 10:15 Patient left the ED. iw Signatures: Yani Bell Irene, RN RN iw Aubrey Robertson, BHUMI HEADING REPAIRER pm1 Mark Rich RN RN ae4
--- NOTE | 2018-12-22 10:08 | EDPHYS ---
Physician Documentation [facility] Name: Barbara Deluca Age: 73 yrs Sex: Female : 1945 Arrival Date: 12/22/2018 Time: 08:55 Bed 14 Private MD: ED Physician Chance Leon HPI: 12/22 09:07 This 73 yrs old Female presents to ER via Ambulatory with complaints of Bee pm1 Sting, Hand Swelling. 09:07 The patient was bitten on the dorsum of right hand, by a wasp, for an unknown reason, pm1 at [facility]. Onset: The symptoms/episode began/occurred yesterday. Animal information: red wasp. Secondary to the bite the patient reports pain, swelling. Associated signs and symptoms: Pertinent positives: swelling at site, Pertinent negatives: fever, numbness distal to wound, suspected foreign body. Severity of symptoms: in the emergency department the symptoms are actually worse. The patient has not experienced similar symptoms in the past. Patient with red wasp bite to dorsum of right hand. Patient reports no symptoms of nausea, vomiting, and diarrhea until she was bitten by the red wasp yesterday. Historical: - Allergies: 09:53 Codeine; ae4 - Home Meds: 09:53 metformin 500 mg Oral tab 1 tab 2 times per day [Active]; omeprazole 40 mg Oral cpDR 1 ae4 cap once daily [Active]; - PMHx: 09:53 Diabetes - NIDDM; GERD; ae4 - Immunization history:: Adult Immunizations up to date, Last tetanus immunization: > 10 years ago. - Social history:: Smoking status: Patient/guardian denies using tobacco. - Ebola Screening: : Patient denies travel to an Ebola-affected area in the 21 days before illness onset No symptoms or risks identified at this time. ROS: 09:07 Constitutional: Negative for fever, chills, and weight loss, Eyes: Negative for injury, pm1 pain, redness, and discharge, ENT: Negative for injury, pain, and discharge, Neck: Negative for injury, pain, and swelling, Cardiovascular: Negative for chest pain, palpitations, and edema, Respiratory: Negative for shortness of breath, cough, wheezing, and pleuritic chest pain. 09:07 Back: Negative for injury and pain, : Negative for injury, bleeding, discharge, and swelling, MS/Extremity: Negative for injury and deformity. 09:07 Neuro: Negative for headache, weakness, numbness, tingling, and seizure. 09:07 Abdomen/GI: Positive for nausea, vomiting, and diarrhea, Negative for abdominal pain, constipation. 09:07 Skin: Positive for swelling, of the dorsum of right hand, Negative for abscesses, cellulitis. Exam: 09:07 Constitutional: This is a well developed, well nourished patient who is awake, alert, pm1 and in no acute distress. Head/Face: Normocephalic, atraumatic. Eyes: Pupils equal round and reactive to light, extra-ocular motions intact. Lids and lashes normal. Conjunctiva and sclera are non-icteric and not injected. Cornea within normal limits. Periorbital areas with no swelling, redness, or edema. ENT: Nares patent. No nasal discharge, no septal abnormalities noted. Tympanic membranes are normal and external auditory canals are clear. Oropharynx with no redness, swelling, or masses, exudates, or evidence of obstruction, uvula midline. Mucous membranes moist. Neck: Trachea midline, no thyromegaly or masses palpated, and no cervical lymphadenopathy. Supple, full range of motion without nuchal rigidity, or vertebral point tenderness. No Meningismus. Chest/axilla: Normal chest wall appearance and motion. Nontender with no deformity. No lesions are appreciated. Cardiovascular: Regular rate and rhythm with a normal S1 and S2. No gallops, murmurs, or rubs. No pulse deficits. Respiratory: Lungs have equal breath sounds bilaterally, clear to auscultation and percussion. No rales, rhonchi or wheezes noted. No increased work of breathing, no retractions or nasal flaring. Abdomen/GI: Soft, non-tender, with normal bowel sounds. No distension or tympany. No guarding or rebound. No evidence of tenderness throughout. Back: No spinal tenderness. No costovertebral tenderness. Full range of motion. 09:07 Skin: abscess, not appreciated, cellulitis, is not appreciated, swelling dorsum of right hand. 09:07 Neuro: Orientation: is normal, Motor: is normal, moves all fours, Sensation: is normal, no obvious gross deficits. Vital Signs: 09:51 BP 125 / 65; Pulse 80; Resp 16; Temp 98.3(O); Pulse Ox 100% on R/A; ae4 MDM: 08:58 Patient medically screened. pm1 10:06 Data reviewed: vital signs. Data interpreted: Pulse oximetry: on room air is 100 %. pm1 Interpretation: normal. Counseling: I had a detailed discussion with the patient and/or guardian regarding: the historical points, exam findings, and any diagnostic results supporting the discharge/admit diagnosis, the need for outpatient follow up, to return to the emergency department if symptoms worsen or persist or if there are any questions or concerns that arise at home. 10:06 ED course: Patient with intense pain and allergic reaction to red wasp bite from pm1 yesterday that caused her to have nausea, vomiting and diarrhea. Patient diabetic but due to symptoms can justify use of steroids with Benadryl and pepcid. Administered Medications: 09:00 Drug: Pepcid 20 mg Route: PO; ae4 10:16 Follow up: Response: No adverse reaction; Marked relief of symptoms iw 09:30 Drug: Benadryl 25 mg Route: PO; ae4 10:16 Follow up: Response: No adverse reaction; Marked relief of symptoms iw 09:37 Drug: Zofran 4 mg Route: PO; ae4 10:16 Follow up: Response: No adverse reaction iw 09:40 Drug: Decadron 10 mg {Note: Administered PO..} Route: IM; Site: Other; ae4 10:16 Follow up: Response: No adverse reaction; Marked relief of symptoms iw 09:49 Drug: Tetanus-Diphtheria Toxoid Adult 0.5 ml {[employer]: [employer]. Exp: ae4 09/02/2020. Lot #: [id number]. } Route: IM; Site: left deltoid; 10:16 Follow up: Response: No adverse reaction iw Disposition: 12:08 Co-signature as Attending Physician, Chance Leon MD. rn Disposition: 12/22/18 10:07 Discharged to Home. Impression: Insect bite (nonvenomous) of right hand. - Condition is Stable. - Discharge Instructions: Insect Bite. - Prescriptions for Benadryl 25 mg Oral Capsule - take 1 capsule by ORAL route every 6 hours As needed; 30 tablet. Zofran 4 mg Oral Tablet - take 1 tablet by ORAL route every 12 hours As needed; 20 tablet. Medrol (Jarvis) 4 mg Oral Tablets, Dose Pack - take 1 tablet by ORAL route as directed - follow package instructions; 1 packet. Pepcid 20 mg Oral Tablet - take 1 tablet by ORAL route every 12 hours for 5 days; 10 tablet. - Medication Reconciliation Form, Thank You Letter, Antibiotic Education, Prescription Opioid Use form. - Follow up: Emergency Department; When: As needed; Reason: Worsening of condition. Follow up: Private Physician; When: 2 - 3 days; Reason: Recheck today's complaints, Continuance of care, Re-evaluation by your physician. - Problem is new. - Symptoms have improved. Signatures: Barbie Phillips RN RN iw Chance Leon MD MD rn Marinas, Patrick, NP PRODUCT DEVELOPMENT TECHNICIAN pm1 Mark Rich RN RN ae4 Corrections: (The following items were deleted from the chart) 10:15 10:07 12/22/2018 10:07 Discharged to Home. Impression: Insect bite (nonvenomous) of iw right hand. Condition is Stable. Forms are Medication Reconciliation Form, Thank You Letter, Antibiotic Education, Prescription Opioid Use. Follow up: Emergency Department; When: As needed; Reason: Worsening of condition. Follow up: Private Physician; When: 2 - 3 days; Reason: Recheck today's complaints, Continuance of care, Re-evaluation by your physician. Problem is new. Symptoms have improved. pm1
[2018-12-22 10:20] VITALS: BP 125/65; TEMP 98.3; O2SAT 100
== END 2018-12-22 10:15 | disposition home or self-care (01) ==
LOC: ER 08:52
DX: S60.561A Insect bite (nonvenomous) of right hand, initial encounter (principal); E11.9 Type 2 diabetes mellitus without complications; K21.9 Gastro-esophageal reflux disease without esophagitis; Z88.6 Allergy status to analgesic agent; Z23 Encounter for immunization
CPT/HCPCS: 90471; 90714; 96372; 99283; J1100

== ENCOUNTER → 2023-06-28 | Emergency (ER) | payer OTHER ==
--- OUTSIDE RECORDS SUMMARY | 2023-06-28 16:25 | XMS REPORT | Continuity of Care Document ---
Author Name Unknown Address [address] [facility] [address] [place] [address] [facility] [address] [facility] [address] [place] [address] Care Team Providers Care Dry Heat Cabinet Attendant Name Role Phone PCP, PATIENT DOES NOT HAVE A Primary Care Physic tigre Unavailable [email or web address] Attending Clinician Unavaila NICK Gutiérrez Attending Clinician Unavailable FRANCINE GARCIA Attending Clinician UnavailHEAVENLY Sen Attending Clinician Unavailable Heavenly Brown Attending Clinician [phone] FLORIN CAT Attending Clinician Unavailable Florin Cat NP Attending Clinician [phone] Doctor Unassigned, [place] Attending Clinician U BAYRON Richardson Attending Clinician UnavailFrancine Malagon MD Attending Clinician [phone] Eduardo Banegas MD Attending Clinician [phone] [email or web address] Admitting Clinician Unavaila fatemeh Payers Payer Name Policy Type Policy Number Effective Date Expirati on Date Source [facility] [employer] [place] [id number] 2021 00:00:00 [employer] MEDICARE OUT OF NETWORK [id number] 2022 00:00:00 Problems Condition Name Condition Details Condition Category Status Onset Date Resolution Date Last Treatment Date Treating Clinician Comments Source No known active problems No known active problems Disease [facility] [id number] Pain in joint, foot, left Problem [facility] [id number] Primary osteoarthr itis of left foot Problem [facility] Allergies, Adverse Reactions, Alerts Allergy Name Allergy Type Status Severity Reaction(s) Onset Date Inactive Date Treating Clinician Comments Source WASP VENOM PROTEIN STARTER KIT DRUG Active Swelling 01-11 00:00: 00 [facility] Wasp Venom Protein Starter Kit Propensi ty to adverse reaction s Active Swelling 01-11 00:00: 00 Red wasps [facility] Codeine Propensi ty to adverse reaction s Active Itching 2014-06 00:00: 00 [facility] CODEINE DRUG INGREDI Active ITCHING 2014-06 00:00: 00 [facility] Codeine Sulfate Propensi ty to adverse reaction s Active Unknown - See comments 10-16 00:00: 00 [facility] CODEINE SULFATE DRUG INGREDI Active Unknown-Cmnt 10-16 00:00: 00 [facility] codeine codeine Active Unknown [facility] Social History Social Habit Start Date Stop Date Quantity Comments Source History of Tobacco Use [facility] Sex Assigned At [facility] Exposure to SARS-CoV-2 (event) 2022-06-06 00:00:00 2022-06-16 11:10:00 Not sure [facility] Alcohol intake 2022-06-16 00:00:00 2022-06-16 00:00:00 0 /d [facility] Smoking Status Start Date Stop Date Source Never Smoker [facility] Medications Ordered Medication Name Filled Medication Name Start Date Stop Date Current Medication? Ordering Clinician Indication Dosage Frequency Signature (SIG) Comments Components Source diphenhydrA MINE (BENADRYL) tablet 25 mg 06-16 17:45: 00 2023- 01-04 17:39 :00 No 25mg 25 mg, Oral, ONCE, 1 dose, On Tue06/16/22 at 1145, [facility] traMADoL (ULTRAM) tablet 50 mg 07-20 03:30: 00 07-20 03:08 :00 No 50mg 50 mg, Oral, ONCE NOW, 1 dose, On 07/19/21 at 2130, [place] [facility] ceFEPIme (MAXIPIME) injection 1,000 mg 07-20 03:30: 00 07-20 03:09 :00 No 1000mg 1,000 mg, Intramuscu lar, ONCE, 1 dose, On 07/19/21 at 2130, STAT
Re ason for Anti-Infec tive: Documented Infection< br>Documen benjy Infection Site: Skin / Soft Tissue
Duration of Therapy: 7 days [facility] doxycycline hyclate (Vibramycin ) capsule 100 mg 07-20 03:15: 00 07-20 03:08 :00 No 100mg 100 mg, Oral, ONCE, 1 dose, On 07/19/21 at 2115, [facility]
Re ason for Anti-Infec tive: Documented Infection< br>Documen benjy Infection Site: Skin / Soft Tissue
Duration of Therapy: 7 days [facility] metformin HCl (METFORMIN ORAL) 07-19 20:11: 12 07-19 00:00 :00 No Take by mouth. [facility] doxycycline hyclate 100 mg capsule 07-19 00:00: 00 07-27 05:59 :00 No [id number] 100mg Take 1 capsule by mouth 2 (two) times daily for 7 days. [facility] traMADoL 50 mg tablet 07-19 00:00: 00 07-27 05:59 :00 No [id number] 50mg Take 1 tablet by mouth every 6 (six) hours as needed for Pain (scale 4-6) or Pain (scale 7-10) for up to 7 days. Indication s: acute pain [facility] mupirocin 2 % ointment 07-15 00:00: 00 Yes Apply to wound twice a day [facility] cefUROXime 250 mg tablet 07-15 00:00: 00 Yes 1{tbl} Take 1 tablet by mouth 2 (two) times daily. [facility] mupirocin 2 % ointment 07-15 00:00: 00 Yes Apply to wound twice a day [facility] cefUROXime 250 mg tablet 07-15 00:00: 00 Yes 1{tbl} Take 1 tablet by mouth 2 (two) times daily. [facility] metFORMIN 500 mg tablet 01-16 00:00: 00 Yes 500mg Take 500 mg by mouth. [facility] metFORMIN 500 mg tablet 01-16 00:00: 00 Yes 500mg Take 500 mg by mouth. [facility] metformin HCl (METFORMIN ORAL) 02-01 15:15: 44 Yes Take by mouth. [facility] metformin HCl (METFORMIN ORAL) 02-01 15:15: 44 Yes Take by mouth. [facility] metformin HCl (METFORMIN ORAL) 02-01 15:15: 44 Yes Take by mouth. [facility] metformin HCl (METFORMIN ORAL) 02-01 15:15: 44 Yes Take by mouth. [facility] methylPREDN ISolone (MEDROL, DOMO,) 4 mg tablets 02-01 00:00: 00 Yes [id number] 9108 84mg Take 21 tablets by mouth SEE-INSTRU CTIONS. follow package directions [facility] methylPREDN ISolone (MEDROL, DOMO,) 4 mg tablets 02-01 00:00: 00 Yes [id number] 9108 84mg Take 21 tablets by mouth SEE-INSTRU CTIONS. follow package directions [facility] methylPREDN ISolone (MEDROL, DOMO,) 4 mg tablets 02-01 00:00: 00 Yes [id number] 9108 84mg Take 21 tablets by mouth SEE-INSTRU CTIONS. follow package directions [facility] methylPREDN ISolone (MEDROL, DOMO,) 4 mg tablets 02-01 00:00: 00 Yes [id number] 9108 84mg Take 21 tablets by mouth SEE-INSTRU CTIONS. follow package directions [facility] methylPREDN ISolone (MEDROL, DOMO,) 4 mg tablets 02-01 00:00: 00 Yes [id number] 9108 84mg Take 21 tablets by mouth SEE-INSTRU CTIONS. follow package directions [facility] methylPREDN ISolone (MEDROL, DOMO,) 4 mg tablets 02-01 00:00: 00 Yes [id number] 9108 84mg Take 21 tablets by mouth SEE-INSTRU CTIONS. follow package directions [facility] clindamycin 300 mg capsule 01-11 00:00: 00 01-22 04:59 :00 No [id number] 300mg Take 1 capsule by mouth 4 (four) times daily for 10 days. [facility] metFORMIN HCl metFORMIN HCl No metFORMIN HCl metFORMIN HCl metFORMIN HCl No metFORMIN HCl Vital Signs Vital Name Observation Time Observation Value Comments S ource height 2022-07-05 08:00:00 63 [in_i] Commo n [facility] weight 2022-07-05 08:00:00 147 [lb_av] Comm on [facility] temperature 2022-07-05 08:00:00 97.6 [degF] Com mon [facility] bmi 2022-07-05 08:00:00 26.04 kg/m2 Comm on [facility] blood pressure systolic 2022-07-05 08:00:00 130 mm[Hg] [facility] blood pressure diastolic 2022-07-05 08:00:00 74 mm[Hg] [facility] Systolic blood pressure 2022-06-16 17:10:00 150 mm[Hg] [facility] Diastolic blood pressure 2022-06-16 17:10:00 90 mm[Hg] [facility] Heart rate 2022-06-16 17:10:00 74 /min Unive [facility] Body temperature 2022-06-16 17:10:00 36.5 [facility] Respiratory rate 2022-06-16 17:10:00 18 /min [facility] Body height 2022-06-16 17:10:[address] [facility] Body weight 2022-06-16 17:10:[address] [facility] BMI 2022-06-16 17:10:00 26.57 kg/m2 [facility] Oxygen saturation in Arterial blood by Pulse oximetry 2022-06-16 17:10:00 100 /min [facility] Systolic blood pressure 2021-07-20 03:15:00 151 mm[Hg] [facility] Diastolic blood pressure 2021-07-20 03:15:00 86 mm[Hg] [facility] Heart rate 2021-07-20 03:15:00 79 /min Unive [facility] Respiratory rate 2021-07-20 03:15:00 17 /min [facility] Oxygen saturation in Arterial blood by Pulse oximetry 2021-07-20 03:15:00 99 /min [facility] Body temperature 2021-07-19 23:58:00 37.06 Be[facility] Body height 2021-07-19 23:58:[address] [facility] Body weight 2021-07-19 23:58:[address] [facility] BMI 2021-07-19 23:58:00 27.10 kg/m2 [facility] Systolic blood pressure 2019-02-01 15:12:00 150 mm[Hg] [facility] Diastolic blood pressure 2019-02-01 15:12:00 98 mm[Hg] [facility] Heart rate 2019-02-01 15:12:00 86 /[facility] Respiratory rate 2019-02-01 15:12:00 18 /min [facility] Body height 2019-02-01 15:12:[address] [facility] Body weight 2019-02-01 15:12:[address] [facility] BMI 2019-02-01 15:12:00 30.65 kg/m2 [facility] Systolic blood pressure 2019-01-11 14:12:00 141 mm[Hg] [facility] Diastolic blood pressure 2019-01-11 14:12:00 96 mm[Hg] [place] [facility] Heart rate 2019-01-11 14:12:00 73 /min [facility] Body temperature 2019-01-11 14:12:00 36.44 [facility] Respiratory rate 2019-01-11 14:12:00 18 /min [facility] Body weight 2019-01-11 14:12:[address] [facility] BMI 2019-01-11 14:12:00 30.65 kg/m2 [facility] Oxygen saturation in Arterial blood by Pulse oximetry 2019-01-11 14:12:00 95 /min [facility] Procedures Procedure Date / Time Performed Performing Clinicia n Source CONSENT/REFUSAL FOR DIAGNOSIS AND TREATMENT 2022-06-16 17:06:48 Doctor Unassigned, [place] [facility] NOTICE OF PRIVACY PRACTICES 2021-07-19 23:48:33 Doctor Unassigned, [place] [facility] CONSENT/REFUSAL FOR DIAGNOSIS AND TREATMENT 2021-07-19 23:46:47 Doctor Unassigned, [place] [facility] Encounters Start Date/Time End Date/Time Encounter Type Admission Type Attending Clinicians Care Facility Care Department Encounter ID Source 2022-11-23 15:02:00 Outpatient STLMLC [facility] [id number] [facility] 2022-07-05 08:09:02 Outpatient STLC [facility] [id number] [facility] 2023-04-10 00:00:00 2023-04-10 00:00:00 Outpatient [email or web address]_S PRIV [facility] [id number] [facility] 2022-12-02 14:30:00 2022-12-02 14:30:00 Outpatient NICK VOSS [facility] [id number] [facility] 2022-11-25 00:00:00 2022-11-25 00:00:00 (TEL) [facility] STLC [id number] [facility] 2022-11-18 08:00:00 2022-11-18 08:00:00 Outpatient R FRANCINE GARCIA [facility] [id number] [facility] 2022-07-05 00:00:00 2022-07-05 00:00:00 OFFICE VISIT NEW PT LEVEL 3 STLMLC STLC [id number] [facility] 2022-06-16 11:11:00 2022-06-16 11:49:00 [facility] [id number] [facility] 2022-06-16 11:11:00 2022-06-16 11:49:00 Emergency PulidoSanaHeavenly [facility] [id number] [facility] 2021-07-19 18:00:00 2021-07-19 21:20:00 Emergency X FLORIN CAT [facility] ERT [id number] [facility] 2021-07-19 18:00:00 2021-07-19 21:20:00 Emergency Florin Cat G [facility] [id number] [facility] 2020-12-24 00:00:00 2020-12-24 00:00:00 Letter (Out) Doctor Unassigned, [place] [facility] [id number] [facility] 2020-12-24 00:00:00 2020-12-24 00:00:00 Letter (Out) Doctor Unassigned, [place] [facility] [id number] [facility] 2020-10-29 09:00:00 2020-10-29 09:00:00 Outpatient Huyen JEROMETIO BAYRON [facility] [id number] [facility] 2019-02-01 09:42:47 2019-02-01 10:45:50 Office Visit Francine Garcia [facility] [id number] [facility] 2019-01-11 09:16:02 2019-01-11 10:42:00 Emergency Eduardo Banegas [facility] [id number] [facility]
--- NOTE | 2023-06-28 18:24 | RAD REPORT ---
EXAM DESCRIPTION: Gopi Single View06/28/2023 5:47 pm CLINICAL HISTORY: RIB PAIN - LEFT COMPARISON: CHEST SINGLE VIEW dated 12/02/2010; CHEST PA AND LAT 2 VIEW dated 06/01/2005 TECHNIQUE: Portable AP view of the chest. FINDINGS: The lungs are clear apart from mild peripheral left basilar interstitial prominence. No p neumothorax or effusion. The cardiomediastinal contours are unremarkable. IMPRESSION: Left basilar mild peripheral interstitial prominence, could relate to superimposition of soft tissues, or related to aspiration or early airspace disease.
--- NOTE | 2023-06-28 18:26 | RAD REPORT ---
EXAM DESCRIPTION: RAD - Hip Left 2 View - 06/28/2023 5:47 pm CLINICAL HISTORY: PAIN COMPARISON: No comparisons TECHNIQUE: Left hip, AP and frogleg views of the left hip. FINDINGS: There is no fracture or dislocation. No acute or destructive bony process seen. IMPRESSION: No acute findings of the left hip.
--- NOTE | 2023-06-28 18:26 | RAD REPORT ---
EXAM DESCRIPTION: RAD - Ribs Left - 06/28/2023 5:47 pm CLINICAL HISTORY: PAIN COMPARISON: Chest Single View dated 06/28/2023 TECHNIQUE: Left ribs, 3 views. FINDINGS: No displaced rib fracture is evident. No aggressive rib lesion. No underlying pneumothorax, effusion, infiltrate or pulmonary contusion. IMPRESSION: Negative left rib series.
--- NOTE | 2023-06-28 18:47 | ER ---
Nurse's Notes [facility] Name: Barbara Deluca Age: 77 yrs Sex: Female : 1945 Arrival Date: 06/28/2023 Time: 16:23 Bed 11 Private MD: Diagnosis: Chest pain, unspecified-chest wall;Pain in left hip;Fall on same level from slipping, tripping and stumbling without subsequent striking against object Presentation: 06/28 16:42 Chief complaint: Patient states: she slipped and fell on ice this morning. patient ap3 denies hitting her head and reports she is not on blood thinners. patient is complaining of pain on her left hip, and left breast and states it is a 10/10 on the pain scale. Coronavirus screen: At this time, the client does not indicate any symptoms associated with coronavirus-19. Ebola Screen: No symptoms or risks identified at this time. Initial Sepsis Screen: Does the patient meet any 2 criteria? No. Patient's initial sepsis screen is negative. Does the patient have a suspected source of infection? No. Patient's initial sepsis screen is negative. Risk Assessment: Do you want to hurt yourself or someone else? Patient reports no desire to harm self or others. Onset of symptoms was June 28, 2023 at 12:00. 16:42 Method Of Arrival: Ambulatory ap3 16:42 Acuity: ROSSY 4 ap3 Triage Assessment: 16:45 General: Appears in no apparent distress. Behavior is calm, cooperative, appropriate ap3 for age. Pain: Complains of pain in left hip, left breast. Neuro: Level of Consciousness is awake, alert, obeys commands, Oriented to person, place, time, situation. Cardiovascular: Patient's skin is warm and dry. Respiratory: Airway is patent Respiratory effort is even, unlabored, Respiratory pattern is regular, symmetrical. Historical: - Allergies: 16:44 No Known Allergies; ap3 - PMHx: 16:44 Diabetes - NIDDM; ap3 - Immunization history:: Client reports receiving the 2nd dose of the Covid vaccine. - Social history:: Smoking status: Patient denies any tobacco usage or history of. Screenin:45 Abuse screen: Denies threats or abuse. Nutritional screening: No deficits noted. ap3 Tuberculosis screening: No symptoms or risk factors identified. 19:16 [facility] ED Fall Risk Assessment (Adult) History of falling in the last 3 months, rv including since admission Yes- single mechanical fall (1 pt) Score/Fall Risk Level 3 or more points = High Risk Oriented to surroundings, Maintained a safe environment, Educated pt \T\ family on fall prevention, incl call for assistance when getting out of bed, Assessed \T\ reinforced patient's understanding of fall precautions. Assessment: 19:16 Musculoskeletal: Range of motion: intact in all extremities. rv Vital Signs: 16:42 BP 138 / 78; Pulse 78; Resp 17; Temp 97.5; Pulse Ox 100% ; Weight 68.04 kg; Height 5 ap3 ft. 3 in. ; Pain 10/10; 16:42 Body Mass Index 26.57 (68.04 kg, 160.02 cm) ap3 16:42 Pain Scale: Adult ap3 [place] Coma Score: 16:46 Eye Response: spontaneous(4). Motor Response: obeys commands(6). Verbal Response: ap3 oriented(5). Total: 15. Trauma Score (Adult): 16:45 Eye Response: spontaneous(1); Verbal Response: oriented(1); Motor Response: obeys ap3 commands(2); Systolic BP: > 89 mm Hg(4); Respiratory Rate: 10 to 29 per min(4); Carlene Score: 15; Trauma Score: 12 ED Course: 16:34 Patient arrived in ED. rg4 16:44 Triage completed. ap3 16:45 Daysi Montero FNP-C [facility] kb 16:45 Chance Leon MD is Attending Physician. kb 16:45 Arm band placed on left wrist. ap3 16:46 Patient maintains SpO2 saturation greater than 95% on room air. ap3 17:48 Hip Left 2 View XRAY In Process Unspecified. EDMS 17:48 Chest Single View XRAY In Process Unspecified. EDMS 17:49 Ribs Left XRAY In Process Unspecified. EDMS 19:16 Patient has correct armband on for positive identification. rv 19:16 No provider procedures requiring assistance completed. Patient did not have IV access rv during this emergency room visit. Administered Medications: No medications were administered Medication: 19:16 VIS not applicable for this client. rv Outcome: 18:46 Discharge ordered by . kb 19:16 Discharged to home ambulatory, rv 19:16 Condition: good 19:16 Discharge instructions given to patient, Instructed on discharge instructions, follow up and referral plans. Demonstrated understanding of instructions, follow-up care, 19:16 Patient left the ED. rv Signatures: Dispatcher [employer] EDDaysi Hdz, PRINT OPERATOR-C PRINT OPERATOR-Ashlyn Bertrand rg4 Teresa Peña RN RN ap3 Mat Buck RN RN rv Corrections: (The following items were deleted from the chart) 16:45 16:44 Allergies: Codeine; ap3 ap3 16:45 16:44 PMHx: GERD; ap3 ap3
--- NOTE | 2023-06-28 18:47 | EDPHYS ---
Physician Documentation [facility] Name: Barbara Deluca Age: 77 yrs Sex: Female : 1945 Arrival Date: 06/28/2023 Time: 16:23 Bed 11 Private MD: ED Physician Chance Leon HPI: 06/28 18:53 This 77 yrs old Female presents to ER via Ambulatory with complaints of Fall Injury. kb 18:53 Patient is a 77-year-old male slipped on ice this morning and fell onto her left side. kb Reports pain to left hip and left ribs. Ambulatory steady gait. States left rib pain is worse with deep breath.. Historical: - Allergies: 16:44 No Known Allergies; ap3 - PMHx: 16:44 Diabetes - NIDDM; ap3 - Immunization history:: Client reports receiving the 2nd dose of the Covid vaccine. - Social history:: Smoking status: Patient denies any tobacco usage or history of. ROS: 18:52 Constitutional: Negative for fever, chills, and weight loss, kb 18:52 Cardiovascular: Positive for chest pain, with movement, of the left lateral anterior chest, 18:52 MS/extremity: Positive for pain, of the left hip, 18:52 All other systems are negative, Exam: 18:52 Constitutional: This is a well developed, well nourished patient who is awake, alert, kb and in no acute distress. Head/Face: Normocephalic, atraumatic. ENT: Moist Mucous membranes Cardiovascular: Regular rate Respiratory: Respirations even and unlabored. No increased work of breathing. Talking in full sentences Skin: Warm, dry with normal turgor. Normal color. MS/ Extremity: Pulses equal, no cyanosis. Neurovascular intact. Full, normal range of motion. Neuro: Awake and alert, GCS 15, oriented to person, place, time, and situation. Moves all extremities. Normal gait. 18:52 Chest/axilla: Inspection: normal, Palpation: tenderness, that is mild, that is moderate, of the left lateral anterior chest, that totally reproduces the patient's complaints, Vital Signs: 16:42 BP 138 / 78; Pulse 78; Resp 17; Temp 97.5; Pulse Ox 100% ; Weight 68.04 kg; Height 5 ap3 ft. 3 in. ; Pain 10/10; 16:42 Body Mass Index 26.57 (68.04 kg, 160.02 cm) ap3 16:42 Pain Scale: Adult ap3 [place] Coma Score: 16:46 Eye Response: spontaneous(4). Motor Response: obeys commands(6). Verbal Response: ap3 oriented(5). Total: 15. Trauma Score (Adult): 16:45 Eye Response: spontaneous(1); Verbal Response: oriented(1); Motor Response: obeys ap3 commands(2); Systolic BP: > 89 mm Hg(4); Respiratory Rate: 10 to 29 per min(4); [place] Score: 15; Trauma Score: 12 MDM: 16:45 Patient medically screened. kb 18:53 Differential diagnosis: contusion, fracture, strain. Data reviewed: vital signs, nurses kb notes. Counseling: I had a detailed discussion with the patient and/or guardian regarding the historical points, exam findings, and any diagnostic results supporting the discharge/admit diagnosis, radiology results, the need for outpatient follow up, a family practitioner, to return to the emergency department if symptoms worsen or persist or if there are any questions or concerns that arise at home. 06/28 16:58 Order name: Hip Left 2 View XRAY; Complete Time: 18:27 kb 06/28 16:58 Order name: Chest Single View XRAY; Complete Time: 18:27 kb 06/28 16:58 Order name: Ribs Left XRAY; Complete Time: 18:27 kb Administered Medications: No medications were administered Disposition: 06/29 09:44 Co-signature as Attending Physician, Chance Leon MD I reviewed the patient's care rn provided by the Advanced Practice Provider and agree with the diagnosis and treatment plan. Disposition Summary: 06/28/23 18:46 Discharge Ordered Notes: Location: Home kb Condition: Stable kb Diagnosis - Chest pain, unspecified - chest wall kb - Pain in left hip kb - Fall on same level from slipping, tripping and stumbling without subsequent kb striking against object Followup: kb - With: Emergency Department - When: As needed - Reason: Worsening of condition Followup: kb - With: Private Physician - When: 2 - 3 days - Reason: Recheck today's complaints, Continuance of care, Re-evaluation by your physician Discharge Instructions: - Discharge Summary Sheet kb - Musculoskeletal Pain kb - Chest Contusion, Adult, [id number] kb Forms: - Medication Reconciliation Form kb - Thank You Letter kb - Antibiotic Education kb - Prescription Opioid Use kb - Patient Portal Instructions kb - Leadership Thank You Letter kb Signatures: Dispatcher [employer] Daysi Cannon, INFORMATICS COORDINATOR-C INFORMATICS COORDINATOR-Chance Roberts MD MD rn Teresa Peña RN RN ap3 Corrections: (The following items were deleted from the chart) 06/28 16:45 16:44 Allergies: Codeine; ap3 ap3 16:45 16:44 PMHx: GERD; ap3 ap3
[2023-06-28 19:43] VITALS: BP 138/78; TEMP 97.5; O2SAT 100
== END ==
LOC: ER 16:23
DX: R07.89 Other chest pain (principal); M25.552 Pain in left hip; W01.0XXA Fall on same level from slipping, tripping and stumbling without subsequent striking against object, initial encounter; E11.9 Type 2 diabetes mellitus without complications
CPT/HCPCS: 71045; 99284

== ENCOUNTER → 2023-07-10 | Emergency (ER) | payer OTHER ==
[~2023-07-10] MED LIST: HYDROCODONE/APAP 10/325 TAB ONE
--- OUTSIDE RECORDS SUMMARY | 2023-07-10 14:04 | XMS REPORT | Continuity of Care Document ---
Author Name Unknown Address [address] [place] [address] [facility] Address [address] [place] [address] Care Team Providers Care Disability Manager Name Role Phone PCP, PATIENT DOES NOT HAVE A Primary Care Physic tigre Unavailable [email or web address] Attending Clinician Unavaila NICK Gutiérrez Attending Clinician Unavailable FRANCINE GARCIA Attending Clinician UnavailHEAVENLY Sen Attending Clinician Unavailable Heavenly Brown Attending Clinician [phone] FLORIN CAT Attending Clinician Unavailable Florin Cat NP Attending Clinician [phone] Doctor Unassigned, [place] Attending Clinician U BAYRON Richardson Attending Clinician UnavailFrancine Malagon MD Attending Clinician [phone] Eduardo Banegas MD Attending Clinician [phone] [email or web address] Admitting Clinician Unavaila fatemeh Payers Payer Name Policy Type Policy Number Effective Date Expirati on Date Source [facility] [employer] HESSEL [id number] 2021 00:00:00 [employer] MEDICARE OUT OF NETWORK [id number] 2022 00:00:00 Problems Condition Name Condition Details Condition Category Status Onset Date Resolution Date Last Treatment Date Treating Clinician Comments Source No known active problems No known active problems Disease Univers [facility] [id number] Pain in joint, foot, left Problem [facility] [id number] Primary osteoarthr itis of left foot Problem [facility] Allergies, Adverse Reactions, Alerts Allergy Name Allergy Type Status Severity Reaction(s) Onset Date Inactive Date Treating Clinician Comments Source WASP VENOM PROTEIN STARTER KIT DRUG Active Swelling 01-11 00:00: 00 [facility] Wasp Venom Protein Starter Kit Propensi ty to adverse reaction s Active Swelling 01-11 00:00: 00 Red wasps [facility] Codeine Propensi ty to adverse reaction s Active Itching 2014-06 00:00: 00 [facility] CODEINE DRUG INGREDI Active ITCHING 2014-06 00:00: 00 [facility] Codeine Sulfate Propensi ty to adverse reaction s Active Unknown - See comments 10-16 00:00: 00 [facility] CODEINE SULFATE DRUG INGREDI Active Unknown-Cmnt 10-16 00:00: 00 [facility] codeine codeine Active Unknown [facility] Social History Social Habit Start Date Stop Date Quantity Comments Source History of Tobacco Use [facility] Sex Assigned At [facility] Exposure to SARS-CoV-2 (event) 2022-06-06 00:00:00 2022-06-16 11:10:00 Not sure [facility] Alcohol intake 2022-06-16 00:00:00 2022-06-16 00:00:00 0 /d [facility] Smoking Status Start Date Stop Date Source Never Smoker [facility] Medications Ordered Medication Name Filled Medication Name Start Date Stop Date Current Medication? Ordering Clinician Indication Dosage Frequency Signature (SIG) Comments Components Source diphenhydrA MINE (BENADRYL) tablet 25 mg 06-16 17:45: 00 2023- 01-04 17:39 :00 No 25mg 25 mg, Oral, ONCE, 1 dose, On Tue06/16/22 at 1145, HADLEY [facility] traMADoL (ULTRAM) tablet 50 mg 07-20 03:30: 00 07-20 03:08 :00 No 50mg 50 mg, Oral, ONCE NOW, 1 dose, On 07/19/21 at 2130, HADLEY [facility] ceFEPIme (MAXIPIME) injection 1,000 mg 07-20 03:30: 00 07-20 03:09 :00 No 1000mg 1,000 mg, Intramuscu lar, ONCE, 1 dose, On 07/19/21 at 2130, STAT
Re ason for Anti-Infec tive: Documented Infection< br>Documen benjy Infection Site: Skin / Soft Tissue
Duration of Therapy: 7 days [facility] doxycycline hyclate (Vibramycin ) capsule 100 mg 07-20 03:15: 00 07-20 03:08 :00 No 100mg 100 mg, Oral, ONCE, 1 dose, On 07/19/21 at 2115, HADLEY
Re ason for Anti-Infec tive: Documented Infection< br>Documen benjy Infection Site: Skin / Soft Tissue
Duration of Therapy: 7 days [facility] metformin HCl (METFORMIN ORAL) 07-19 20:11: 12 07-19 00:00 :00 No Take by mouth. [facility] doxycycline hyclate 100 mg capsule 07-19 00:00: 00 07-27 05:59 :00 No [id number] 100mg Take 1 capsule by mouth 2 (two) times daily for 7 days. [facility] traMADoL 50 mg tablet 07-19 00:00: 00 07-27 05:59 :00 No [id number] 50mg Take 1 tablet by mouth every 6 (six) hours as needed for Pain (scale 4-6) or Pain (scale 7-10) for up to 7 days. Indication s: acute pain [facility] mupirocin 2 % ointment 07-15 00:00: 00 Yes Apply to wound twice a day [facility] cefUROXime 250 mg tablet 07-15 00:00: 00 Yes 1{tbl} Take 1 tablet by mouth 2 (two) times daily. [facility] mupirocin 2 % ointment 07-15 00:00: 00 Yes Apply to wound twice a day [facility] cefUROXime 250 mg tablet 07-15 00:00: 00 Yes 1{tbl} Take 1 tablet by mouth 2 (two) times daily. [facility] metFORMIN 500 mg tablet 01-16 00:00: 00 Yes 500mg Take 500 mg by mouth. [facility] metFORMIN 500 mg tablet 01-16 00:00: 00 Yes 500mg Take 500 mg by mouth. [facility] metformin HCl (METFORMIN ORAL) 02-01 15:15: 44 Yes Take by mouth. [facility] metformin HCl (METFORMIN ORAL) 02-01 15:15: 44 Yes Take by mouth. [facility] metformin HCl (METFORMIN ORAL) 02-01 15:15: 44 Yes Take by mouth. [facility] metformin HCl (METFORMIN ORAL) 02-01 15:15: 44 Yes Take by mouth. [facility] methylPREDN ISolone (MEDROL, DOMO,) 4 mg tablets 02-01 00:00: 00 Yes [id number] 84mg Take 21 tablets by mouth SEE-INSTRU CTIONS. follow package directions [facility] methylPREDN ISolone (MEDROL, DOMO,) 4 mg tablets 02-01 00:00: 00 Yes [id number] 9108 84mg Take 21 tablets by mouth SEE-INSTRU CTIONS. follow package directions [facility] methylPREDN ISolone (MEDROL, DOMO,) 4 mg tablets 02-01 00:00: 00 Yes [id number] 9108 84mg Take 21 tablets by mouth SEE-INSTRU CTIONS. follow package directions [facility] methylPREDN ISolone (MEDROL, DOMO,) 4 mg tablets 02-01 00:00: 00 Yes [id number] 9108 84mg Take 21 tablets by mouth SEE-INSTRU CTIONS. follow package directions [facility] methylPREDN ISolone (MEDROL, DOMO,) 4 mg tablets 02-01 00:00: 00 Yes [id number] 9108 84mg Take 21 tablets by mouth SEE-INSTRU CTIONS. follow package directions [facility] methylPREDN ISolone (MEDROL, DOMO,) 4 mg tablets 02-01 00:00: 00 Yes [id number] 9108 84mg Take 21 tablets by mouth SEE-INSTRU CTIONS. follow package directions [facility] clindamycin 300 mg capsule 01-11 00:00: 00 01-22 04:59 :00 No [id number] 300mg Take 1 capsule by mouth 4 (four) times daily for 10 days. [facility] metFORMIN HCl metFORMIN HCl No metFORMIN HCl metFORMIN HCl metFORMIN HCl No metFORMIN HCl Vital Signs Vital Name Observation Time Observation Value Comments S ource height 2022-07-05 08:00:00 63 [in_i] Commo n [facility] weight 2022-07-05 08:00:00 147 [lb_av] Comm on [facility] temperature 2022-07-05 08:00:00 97.6 [degF] Com mon [facility] bmi 2022-07-05 08:00:00 26.04 kg/m2 Comm on [facility] blood pressure systolic 2022-07-05 08:00:00 130 mm[Hg] [facility] blood pressure diastolic 2022-07-05 08:00:00 74 mm[Hg] [facility] Systolic blood pressure 2022-06-16 17:10:00 150 mm[Hg] [facility] Diastolic blood pressure 2022-06-16 17:10:00 90 mm[Hg] [facility] Heart rate 2022-06-16 17:10:00 74 /min Unive [facility] Body temperature 2022-06-16 17:10:00 36.5 Bebe [facility] Respiratory rate 2022-06-16 17:10:00 18 /min [facility] Body height 2022-06-16 17:10:[address] [facility] Body weight 2022-06-16 17:10:[address] [facility] BMI 2022-06-16 17:10:00 26.57 kg/m2 [facility] Oxygen saturation in Arterial blood by Pulse oximetry 2022-06-16 17:10:00 100 /min [facility] Systolic blood pressure 2021-07-20 03:15:00 151 mm[Hg] [facility] Diastolic blood pressure 2021-07-20 03:15:00 86 mm[Hg] [facility] Heart rate 2021-07-20 03:15:00 79 /min Unive [facility] Respiratory rate 2021-07-20 03:15:00 17 /min [facility] Oxygen saturation in Arterial blood by Pulse oximetry 2021-07-20 03:15:00 99 /min [facility] Body temperature 2021-07-19 23:58:00 37.06 Bebe [facility] Body height 2021-07-19 23:58:[address] [facility] Body weight 2021-07-19 23:58:[address] [facility] BMI 2021-07-19 23:58:00 27.10 kg/m2 [facility] Systolic blood pressure 2019-02-01 15:12:00 150 mm[Hg] [facility] Diastolic blood pressure 2019-02-01 15:12:00 98 mm[Hg] [facility] Heart rate 2019-02-01 15:12:00 86 /min [facility] Respiratory rate 2019-02-01 15:12:00 18 /min [facility] Body height 2019-02-01 15:12:[address] [facility] Body weight 2019-02-01 15:12:[address] [facility] BMI 2019-02-01 15:12:00 30.65 kg/m2 [facility] Systolic blood pressure 2019-01-11 14:12:00 141 mm[Hg] [facility] Diastolic blood pressure 2019-01-11 14:12:00 96 mm[Hg] [place] [facility] Heart rate 2019-01-11 14:12:00 73 /min [facility] Body temperature 2019-01-11 14:12:00 36.44 Bebe [facility] Respiratory rate 2019-01-11 14:12:00 18 /min [facility] Body weight 2019-01-11 14:12:[address] [facility] BMI 2019-01-11 14:12:00 30.65 kg/m2 [facility] Oxygen saturation in Arterial blood by Pulse oximetry 2019-01-11 14:12:00 95 /min [facility] Procedures Procedure Date / Time Performed Performing Clinicia n Source CONSENT/REFUSAL FOR DIAGNOSIS AND TREATMENT 2022-06-16 17:06:48 Doctor Unassigned, [place] [facility] NOTICE OF PRIVACY PRACTICES 2021-07-19 23:48:33 Doctor Unassigned, [place] [facility] CONSENT/REFUSAL FOR DIAGNOSIS AND TREATMENT 2021-07-19 23:46:47 Doctor Unassigned, [place] [facility] Encounters Start Date/Time End Date/Time Encounter Type Admission Type Attending Clinicians Care Facility Care Department Encounter ID Source 2022-11-23 15:02:00 Outpatient [facility] [id number] [facility] 2022-07-05 08:09:02 Outpatient [facility] [id number] [facility] 2023-04-10 00:00:00 2023-04-10 00:00:00 Outpatient GC_[email or web address] maxwella_S [facility] [id number] [facility] 2022-12-02 14:30:00 2022-12-02 14:30:00 Outpatient NICK VOSS [facility] [id number] [facility] 2022-11-25 00:00:00 2022-11-25 00:00:00 (TEL) [facility] [id number] [facility] 2022-11-18 08:00:00 2022-11-18 08:00:00 Outpatient R FRANCINE GARCIA [facility] [id number] [facility] 2022-07-05 00:00:00 2022-07-05 00:00:00 OFFICE VISIT NEW PT LEVEL 3 STLMLC STLC [id number] [facility] 2022-06-16 11:11:00 2022-06-16 11:49:00 Emergency [facility] [id number] [facility] 2022-06-16 11:11:00 2022-06-16 11:49:00 Emergency PulidoSanaHeavenly [facility] [id number] [facility] 2021-07-19 18:00:00 2021-07-19 21:20:00 Emergency X FLORIN CAT RUST ERT [id number] [facility] 2021-07-19 18:00:00 2021-07-19 21:20:00 Emergency Florin Cat G [facility] [id number] [facility] 2020-12-24 00:00:00 2020-12-24 00:00:00 Letter (Out) Doctor Unassigned, [place] [facility] [id number] [facility] 2020-12-24 00:00:00 2020-12-24 00:00:00 Letter (Out) Doctor Unassigned, [place] [facility] [id number] [facility] 2020-10-29 09:00:00 2020-10-29 09:00:00 Outpatient Huyen JEROMETIO BAYRON [facility] [id number] [facility] 2019-02-01 09:42:47 2019-02-01 10:45:50 Office Visit Francine Garcia [facility] [id number] [facility] 2019-01-11 09:16:02 2019-01-11 10:42:00 Emergency Eduardo Banegas [facility] [id number] [facility]
--- NOTE | 2023-07-10 15:20 | RAD REPORT ---
EXAM DESCRIPTION: CT - Thorax Wo Con - 07/10/2023 3:05 pm CLINICAL HISTORY: rib pain COMPARISON: CTANGIO CHEST FOR PE dated 12/02/2010 FINDINGS: Chest Wall: No suspicious thyroid nodules or pathologic lymphadenopathy. Bilateral breast prostheses . Lungs: No acute abnormality. Pleura: No significant effusions or pneumothorax. Mediastinum/mariano: No pathologic lymphadenopathy. Pulmonary arteries/Aorta: Limited evaluation without contrast. No aortic aneurysm. Heart: No significant pericardial effusion. Normal heart size. Upper abdomen: No acute abnormality. Too small to characterize and/or benign appearing renal lesions are noted. Too small to characterize liver lesions which are likely benign. Cholecystectomy. Bones: No acute abnormality. No displaced or healing rib fractures identified. All CT scans are performed using dose optimization technique as appropriate and may include automated exposure control or mA/KV adjustment according to patient size. IMPRESSION: No evidence of significant acute trauma to the chest. No displaced or healing rib fractu res identified.
--- NOTE | 2023-07-10 15:59 | EDPHYS ---
Physician Documentation [facility] Name: Barbara Deluca Age: 77 yrs Sex: Female : 1945 Arrival Date: 07/10/2023 Time: 13:48 Bed 18 Private MD: ED Physician Raymond Coello HPI: 07/10 17:45 This 77 yrs old Female presents to ER via Ambulatory with complaints of Rib Pain. rt 17:45 Patient presents to the ED with left-sided rib pain. Patient had a recent fall in which rt she landed on her lower ribs, had negative x-rays. States that the pain has modestly improved until today, where it has worsened. She does have pain with deep breath. Denies shortness of breath. Denies other acute complaints at this time, symptoms are moderate in severity, aching nature, nonradiating, no other aggravating alleviating factors.. Historical: - Allergies: 14:10 Codeine; hb - Home Meds: 14:10 omeprazole 40 mg Oral cpDR 1 cap once daily [Active]; metformin 500 mg Oral tab 1 tab 2 hb times per day [Active]; - PMHx: 14:10 Diabetes - NIDDM; hb - Immunization history:: Adult Immunizations up to date. - Social history:: Smoking status: Patient denies any tobacco usage or history of. - Family history:: not pertinent. ROS: 17:45 Constitutional: Negative for fever, chills, and weight loss, Respiratory: Negative for rt shortness of breath, cough, wheezing, and pleuritic chest pain, Abdomen/GI: Negative for abdominal pain, nausea, vomiting, diarrhea, and constipation, MS/Extremity: Negative for injury and deformity, Skin: Negative for injury, rash, and discoloration, Neuro: Negative for headache, weakness, numbness, tingling, and seizure, Psych: Negative for depression, anxiety, suicide ideation, homicidal ideation, and hallucinations, 17:45 Cardiovascular: Positive for chest pain, Negative for edema, Exam: 17:45 Constitutional: This is a well developed, well nourished patient who is awake, alert, rt and in no acute distress. Head/Face: Normocephalic, atraumatic. Cardiovascular: Regular rate and rhythm with a normal S1 and S2. No gallops, murmurs, or rubs. Normal PMI, no JVD. No pulse deficits. Respiratory: Lungs have equal breath sounds bilaterally, clear to auscultation and percussion. No rales, rhonchi or wheezes noted. No increased work of breathing, no retractions or nasal flaring. Abdomen/GI: Soft, non-tender, with normal bowel sounds. No distension or tympany. No guarding or rebound. No evidence of tenderness throughout. Skin: Warm, dry with normal turgor. Normal color with no rashes, no lesions, and no evidence of cellulitis. MS/ Extremity: Pulses equal, no cyanosis. Neurovascular intact. Full, normal range of motion. Neuro: Awake and alert, GCS 15, oriented to person, place, time, and situation. Cranial nerves II-XII grossly intact. Motor strength 5/5 in all extremities. Sensory grossly intact. Cerebellar exam normal. Normal gait. Psych: Awake, alert, with orientation to person, place and time. Behavior, mood, and affect are within normal limits. 17:45 Chest/axilla: Tenderness to the left lower rib margin reproduces chest pain, no crepitus felt. Vital Signs: 14:08 BP 136 / 79; Pulse 78; Resp 16; Temp 97.9(TE); Pulse Ox 100% on R/A; Weight 69.4 kg; hb Height 5 ft. 3 in. ; Pain 10/10; 16:05 BP 124 / 87; Pulse 76; Resp 18 S; Pulse Ox 99% on R/A; as6 14:08 Body Mass Index 27.10 (69.40 kg, 160.02 cm) hb 14:08 Pain Scale: Adult hb MDM: 14:09 Patient medically screened. rt 17:45 Differential Diagnosis Rib fracture, rib contusion, pneumothorax. Data reviewed: vital rt signs, nurses notes, radiologic studies. I considered the following discharge prescriptions or medication management in the emergency department Medications were administered in the Emergency Department. See MAR. Independent interpretation of the following test(s) in the Emergency Department CT Scan: My interpretation is No pneumothorax in interpretation of CT scan images. Test considered but Not performed: Other Details Patient's symptoms are continuation of her pain from trauma, very low suspicion for cardiac etiology, labs, EKG not indicated. Care significantly affected by the following chronic conditions: Diabetes. Counseling: I had a detailed discussion with the patient and/or guardian regarding the historical points, exam findings, and any diagnostic results supporting the discharge/admit diagnosis, lab results, radiology results, the need for outpatient follow up, to return to the emergency department if symptoms worsen or persist or if there are any questions or concerns that arise at home. Response to treatment: the patient's symptoms have mildly improved after treatment. 07/10 14:16 Order name: CT Chest Wo Con; Complete Time: 15:24 rt Administered Medications: 15:10 Drug: Ringling PO 10 mg-325 mg 1 tabs PO once Route: PO; hb 16:04 Follow up: Response: No adverse reaction as6 Disposition Summary: 07/10/23 15:59 Discharge Ordered Notes: Location: Home rt Problem: new rt Symptoms: have improved rt Condition: Stable rt Diagnosis - Chest wall contusion rt Followup: rt - With: Private Physician - When: 7 - 10 days - Reason: Discharge Instructions: - Discharge Summary Sheet rt - Rib Contusion rt - Chest Wall Pain rt Forms: - Medication Reconciliation Form rt - Thank You Letter rt - Antibiotic Education rt - Prescription Opioid Use rt - Patient Portal Instructions rt - Leadership Thank You Letter rt Prescriptions: - Tramadol 50 mg Oral tablet - take 1 tablet ORAL route every 8 hours as needed; 18 tablet; Refills: 0, rt Product Selection Permitted Signatures: Dispatcher [employer] Kallie Frazier, RN RN Haroon Garcia RN RN as6 Raymond Coello MD MD rt
--- NOTE | 2023-07-10 15:59 | ER ---
Nurse's Notes [facility] Name: Barbara Deluca Age: 77 yrs Sex: Female : 1945 Arrival Date: 07/10/2023 Time: 13:48 Bed 18 Private MD: Diagnosis: Chest wall contusion Presentation: 07/10 14:08 Chief complaint: Seen in ED after fall 06/28, c/o worsening left sided chest wall pain hb 10/10. Coronavirus screen: At this time, the client does not indicate any symptoms associated with coronavirus-19. Ebola Screen: No symptoms or risks identified at this time. Initial Sepsis Screen: Does the patient meet any 2 criteria? No. Patient's initial sepsis screen is negative. Does the patient have a suspected source of infection? No. Patient's initial sepsis screen is negative. Risk Assessment: Do you want to hurt yourself or someone else? Patient reports no desire to harm self or others. Onset of symptoms was July 10, 2023. 14:08 Method Of Arrival: Ambulatory hb 14:08 Acuity: ROSSY 4 hb Triage Assessment: 14:11 General: Appears in no apparent distress. Behavior is calm, cooperative. Pain: Pain hb currently is 10 out of 10 on a pain scale. Neuro: Level of Consciousness is awake, alert, obeys commands, Oriented to person, place, time, situation. Cardiovascular: Patient's skin is warm and dry. Respiratory: Respiratory effort is even, unlabored, Respiratory pattern is regular, symmetrical. Historical: - Allergies: 14:10 Codeine; hb - Home Meds: 14:10 omeprazole 40 mg Oral cpDR 1 cap once daily [Active]; metformin 500 mg Oral tab 1 tab 2 hb times per day [Active]; - PMHx: 14:10 Diabetes - NIDDM; hb - Immunization history:: Adult Immunizations up to date. - Social history:: Smoking status: Patient denies any tobacco usage or history of. - Family history:: not pertinent. Screenin:04 [facility] ED Fall Risk Assessment (Adult) Score/Fall Risk Level 0 - 2 = Low Risk. Abuse as6 screen: Denies threats or abuse. Denies injuries from another. Nutritional screening: No deficits noted. Tuberculosis screening: No symptoms or risk factors identified. Vital Signs: 14:08 BP 136 / 79; Pulse 78; Resp 16; Temp 97.9(TE); Pulse Ox 100% on R/A; Weight 69.4 kg; hb Height 5 ft. 3 in. ; Pain 10/10; 16:05 BP 124 / 87; Pulse 76; Resp 18 S; Pulse Ox 99% on R/A; as6 14:08 Body Mass Index 27.10 (69.40 kg, 160.02 cm) hb 14:08 Pain Scale: Adult hb ED Course: 13:49 Patient arrived in ED. rg4 13:51 Raymond Coello MD is Attending Physician. rt 14:10 Triage completed. hb 14:10 Arm band placed on. hb 15:07 CT Chest Wo Con In Process Unspecified. EDMS 15:50 Mary Radford is Primary Nurse. cp4 16:04 Bed in low position. Call light in reach. Provided Education on: rx teaching, follow up.as6 16:04 No provider procedures requiring assistance completed. Patient did not have IV access as6 during this emergency room visit. Administered Medications: 15:10 Drug: Mcintosh PO 10 mg-325 mg 1 tabs PO once Route: PO; hb 16:04 Follow up: Response: No adverse reaction as6 Medication: 16:04 VIS not applicable for this client. as6 Outcome: 15:59 Discharge ordered by . rt 16:04 Discharged to home ambulatory, with family, as6 16:04 Condition: stable 16:04 Discharge instructions given to patient, Instructed on discharge instructions, follow up and referral plans. medication usage, Demonstrated understanding of instructions, follow-up care, medications, Prescriptions given X 1, 16:05 Patient left the ED. as6 Signatures: Dispatcher [employer] EDMS Kallie Caballero, RN RN Ashlyn Gonzalez rg4 Haroon Garcia, NAOMY RN as6 Raymond Coello MD MD rt Mary Radford cp4
[2023-07-10 18:19] VITALS: BP 124/87; TEMP 97.9; O2SAT 99
== END ==
LOC: ER 13:48
DX: S20.212A Contusion of left front wall of thorax, initial encounter (principal); E11.9 Type 2 diabetes mellitus without complications; Z88.5 Allergy status to narcotic agent
CPT/HCPCS: 71250